=== PATIENT | female | born 1950 | race Caucasian/White ===

== ENCOUNTER 2025-06-17 00:37 | Emergency (ER) | payer MEDICARE, OTHER, SELFPAY ==
[2025-06-17] VITALS (7 sets, daily range): BP systolic 118–147; BP diastolic 56–90; BMI 26.5
[2025-06-17 01:06] LABS: Hematocrit 36.8 % (37.0-47.0); Hemoglobin 13.1 g/dL (12.0-16.0); Mean Corp Hgb Conc. 35.6 g/dL (33.0-37.0); Mean Corpuscular Volume 85.0 fL (81.0-99.0); Nucleated Red Blood Cells % 0 %; Platelet Count 288 10^3/uL (130-400); Red Cell Dist. Width 13.5 % (11.5-14.5)
[2025-06-17 01:31] LABS: ALT (SGPT) 28 U/L (0-35); AST (SGOT) 29 U/L (14-36); Albumin 4.4 g/dl (3.5-5.0); Alkaline Phosphatase 71 U/L (38-126); Blood Urea Nitrogen 28 mg/dl (7-17); Calcium 9.7 mg/dl (8.4-10.2); Carbon Dioxide 29 mmol/L (22-30); Chloride 96 mmol/L (98-107); Glucose 109 mg/dl (70-99); Potassium 3.8 mmol/L (3.5-5.1); Sodium 131 mmol/L (135-145); Total Protein 7.1 g/dl (6.3-8.2); eGFR > 60.00
[2025-06-17] MEDS: NSS 1000 IV (01:57)
[2025-06-17] MEDS: NEURONTIN 300 MG PO (04:05)
[2025-06-17] MEDS: TORADOL 15 MG IV (05:05)
--- NOTE | 2025-06-17 06:22 | ED.GENMED ---
History of Present Illness
General
Chief Complaint: Medication Reaction
Source: patient
Time Seen by Provider: 06/17/25 01:35
Nursing documentation reviewed up to this point in time: agreed with
History of Present Illness
History of Present Illness:
Note:
CHIEF COMPLAINT(S)
- Electrical sensation and involuntary spasms in the legs and arms.
HISTORY OF PRESENT ILLNESS
The patient is a 75-year-old female presenting with a sensation described as electrical impulses going down her legs and arms. This sensation occurs primarily when lying down and appears to be alleviated somewhat by walking around. She reports that
the sensation can be strong enough to feel like electric shocks, particularly when touched. These symptoms have disrupted her sleep, as she has difficulty sleeping due to the discomfort. Additionally, the patient describes involuntary spasms in her
legs, likening the feeling to a rubber band being wound tightly and then snapping. She mentions a history of dehydration, which is corroborated by laboratory findings. The patient expresses concern about these symptoms possibly being related to
dehydration and is currently receiving fluids and electrolytes for rehydration.
The patient has a past medical history of a fasciitis-like condition causing leg spasms. She was previously taking Celecoxib (Celebrex) for knee and bone pain but stopped due to ankle swelling, which she suspects was a side effect of the medication.
The patient notes that the swelling has decreased significantly since discontinuing the medication but remains slightly present.
SOCIAL DETERMINANTS AFFECTING HEALTH
The patient reports difficulty in maintaining adequate hydration, which may be contributing to her symptoms.
ALLERGIES
The patient reports having numerous contact allergies.
PHYSICAL EXAM
General: Alert, no acute distress.
Skin: Warm, dry.
Head: Normocephalic, atraumatic.
Neck: Supple, trachea midline.
Eyes, Ears, Nose, Mouth and Throat: Oral mucosa moist.
Cardiovascular: Normal peripheral perfusion, No edema.
Respiratory: Respirations are non-labored.
Gastrointestinal: Abdomen nondistended.
Back: Normal range of motion, Normal alignment.
Musculoskeletal: Normal range of motion, normal strength.
Neurological: Alert and oriented to person, place, time, and situation, No focal neurological deficit observed.
Psychiatric: Cooperative, appropriate mood & affect.
PLAN
1. Administer intravenous fluids and electrolytes to address dehydration.
2. Encourage oral hydration, particularly with electrolyte-rich fluids like sports drinks.
3. Monitor for improvement in symptoms following rehydration.
4. Assess the patients electrolyte levels to determine any deficiencies or imbalances.
DIFFERENTIAL DIAGNOSIS
The Differential Diagnosis includes, in no particular order and is not limited to:
1. Restless Leg Syndrome.
2. Peripheral neuropathy.
3. Electrolyte imbalance.
4. Medication side effects.
5. Dehydration.
6. Lumbar radiculopathy.
7. Spinal stenosis.
8. Orthostatic hypotension.
9. Sciatica.
10. Hypomagnesemia.
Disposition:
SUMMARY OF ENCOUNTER
The patient is a 75-year-old female who presented with electric shooting sensations down her legs, primarily occurring while trying to sleep. Upon evaluation, she was found to be dehydrated and received intravenous fluids along with various pain
medications in the emergency department. The administration of these treatments resulted in the complete elimination of her symptoms.
DISPOSITION
The patient was discharged in a much-improved condition.
PLAN
The patient will be started on Voltaren for ongoing management of her symptoms.
MEDICATION RECONCILIATION
Multiple types of pain medications administered in the emergency department.
Patient will be started on diclofenac (Voltaren).
MEDICAL DECISION MAKING
- Complexity of Data Reviewed: Chronic conditions affecting care include previous fasciitis-like condition causing leg spasms. The differential diagnosis list includes Restless Leg Syndrome, Peripheral neuropathy, Electrolyte imbalance, Medication
side effects, Dehydration, Lumbar radiculopathy, Spinal stenosis, Orthostatic hypotension, Sciatica, and Hypomagnesemia.
- Data:
Category 1
I reviewed the patients lab tests which supported findings of dehydration.
- Risk:
Prescription medication was prescribed, which is diclofenac (Voltaren), for symptom management.
DIAGNOSIS
Electric shooting sensations in legs and dehydration. Possible Restless Leg Syndrome or Peripheral Neuropathy.
Phy Exam
Physical Exam
Physical Exam:
.
Course
Orders/Labs/Results
Orders:
Orders
06/17/25 01:00
Complete Blood Count/With Diff Urgent
Comprehensive Metabolic Panel Urgent
06/17/25 01:36
0.9% Sodium Chloride 1000 ml [Nss] 1,000 ml IV BOLUS
06/17/25 03:56
Gabapentin [Neurontin] 300 mg PO NOW STA
06/17/25 05:03
Ketorolac [Toradol] 15 mg .ROUTE .STK-MED ONE
06/17/25 05:05
Ketorolac [Toradol] 15 mg IV NOW STA
Ketorolac [Toradol] 15 mg IV NOW STA
Abnormal Lab Results
06/17/25
01:00
Hct 36.8 L %
(37.0-47.0)
Absolute Monos (auto) 0.9 H 10^3/uL
(0.1-0.6)
Monocytes % 12.5 H %
(1.7-9.3)
Sodium 131 L mmol/L
(135-145)
Chloride 96 L mmol/L
(98-107)
BUN 28 H mg/dl
(7-17)
Glucose 109 H mg/dl
(70-99)
06/17/25 01:00
06/17/25 01:00
Vital Signs
Initial and Last Documented VS:
Initial Vital Signs
Temp Pulse Resp BP Pulse Ox
98.1 F 92 20 146/90 94
06/17/25 00:47 06/17/25 00:47 06/17/25 00:47 06/17/25 00:47 06/17/25 00:47
Last Documented Vital Signs
Temp Pulse Resp BP Pulse Ox
98.1 F 72 18 143/72 98
06/17/25 00:47 06/17/25 01:57 06/17/25 01:57 06/17/25 06:00 06/17/25 06:24
*Pulse Oximetry
SaO2: 98
Oxygen Mode of Delivery: Room air
Patient hypoxic: no
*Critical Care Note
Total Time (30-74mins, 75-104mins- exclusive of procedures): Not Applicable
ED Attending Note
-
Portions of this chart may have been created with voice recognition software.� Occasional wrong word or��sound alike� substitutions may have occurred due to the inherent limitations of voice recognition software.
Discharge Plan
Departure
Patient Disposition: Home (Routine Discharge)
Date of Disposition: 06/17/25
Time of Disposition: 06:23
Patient with high blood pressure during this ER visit?: Yes
Condition: Good
Discharge Problem:
Paresthesias, Musculoskeletal pain
Prescriptions:
New
diclofenac sodium 75 mg tablet,delayed release (DR/EC)
75 mg PO BID Qty: 10 0RF
Referrals:
Renate Tamez MD [Non-Admitting Privileges, Psychiatry]
UNKNOWN - PT DOES,NOT KNOW [Family Provider]
Activity Restrictions/Additional Instructions:
Thank You for choosing [facility].
It was a pleasure meeting you and taking part in your care. We hope for your continued healing and wellness.
Please read discharge instructions in their entirety. However, they are for general education and may not describe your exact diagnosis at discharge. Information on your ER visit and medical conditions were discussed with you along with appropriate
follow up information...
If indicated, please take your medications as instructed and indicated on discharge paperwork.
Please schedule a follow up appointment as directed. Call to schedule an appointment
Please return to the emergency department with ANY change in, persisting, or worsening of symptoms. If any of your symptoms do not improve, or persist, or become more severe within 6-12 hours, please return to the emergency department for further
care.
Please return to the emergency department if you develop a headache, neck pain/stiffness, fever greater than 100.4F, chest pain, shortness of breath, persistent nausea, vomiting, slurred speech, difficulty walking, numbness/tingling, weakness, signs
of infection or any other symptoms that are worrisome to you.
If you have any questions or concerns please do not hesitate to call the Hospital at or E-mail me directly at [email or web address]
Interventions
Interventions:
*Risk Screen - Suicide Last Done: 06/17/25 00:47
*General Assessment Last Done: 06/17/25 00:47
*Neglect/Abuse Screening Last Done: 06/17/25 00:47
*ED- Fall Risk Assessment Last Done: 06/17/25 00:47
*ED COVID-19 Vaccine History Last Done: 06/17/25 06:25
*Nursing Disposition Last Done: 06/17/25 06:25
ED-EENT Assessment Last Done: 06/17/25 01:49
ED- Pulmonary Assessment Last Done: 06/17/25 01:49
ED-Skin Assessment Last Done: 06/17/25 01:49
Discharge Date and Time
Discharge Date/Time: 06/17/25 06:38
Print Language: [place]
== END 2025-06-17 06:38 | disposition home or self-care (01) ==
LOC: EMR 00:37
PROVIDERS: EMERGENCY PHYSICIAN Student in an Organized Health Care Education/Training Program
DX: R20.2 Paresthesia of skin (principal); M79.18 Myalgia, other site; R25.2 Cramp and spasm; E86.0 Dehydration; G47.9 Sleep disorder, unspecified; I10 Essential (primary) hypertension; M19.90 Unspecified osteoarthritis, unspecified site; J45.909 Unspecified asthma, uncomplicated; Z85.828 Personal history of other malignant neoplasm of skin; Z88.8 Allergy status to other drugs, medicaments and biological substances
CPT/HCPCS: 99284; 96374; 96361; 80053; 85025

== ENCOUNTER 2025-06-20 16:41 | Emergency (ER) | payer MEDICARE, OTHER, SELFPAY ==
[2025-06-20 16:43] VITALS: BP 171/101
--- NOTE | 2025-06-20 17:00 | ED.GENMED ---
History of Present Illness
General
Chief Complaint: Circulation Problem
Time Seen by Provider: 06/20/25 17:00
History of Present Illness
History of Present Illness:
TIME OF INITIAL EVALUATION
- 5 PM
REVIEW OF OLD RECORDS
- The patient has a history of asthma, high blood pressure, and skin cancer. The patient was seen here 3 days ago diagnosed with musculoskeletal pain. At that time there was some concern for the possibility of restless leg syndrome or peripheral
neuropathy. She was given a prescription for Voltaren. At that time, CBC was unremarkable and chemistries were also unremarkable.
Note:
CHIEF COMPLAINT(S)
Buzzing sensation progressing from legs to the entire body, described by the patient as an electricity-like sensation.
HISTORY OF PRESENT ILLNESS
The patient is a 75-year-old female who presented with a progressive buzzing sensation that initially started in her legs and has now extended from her neck down to her body. The patient describes the sensation as marilu to electricity and states it
is becoming unbearably intense. She denies any associated pain and noted that she had a previous emergency room visit three days ago where blood tests were conducted, and results were reported normal. She has not previously consulted with a
neurologist and denies any visual changes such as double vision. The patient has received a prescription for diclofenac recently but reports no significant improvement. Following discussion, the potential for a neuropathic cause was raised, commonly
seen with conditions such as diabetic neuropathy, though the patients recent blood work does not indicate a simple metabolic or electrolyte imbalance. The patient experiences restlessness that now affects her entire body.
MEDICATIONS
The patient has been prescribed diclofenac previously. Discussion regarding the potential use of gabapentin for neuropathic pain management took place.
PLAN
1. Initiate a dose of gabapentin to assess its effectiveness in managing the buzzing sensation.
2. Schedule a CAT scan to rule out any structural abnormalities within the brain.
3. No additional blood work required at this time, as recent tests were normal.
4. Follow-up appointment with a neurologist is scheduled for a more detailed outpatient evaluation.
DIFFERENTIAL DIAGNOSIS
The Differential Diagnosis includes, in no particular order and is not limited to:
1. Peripheral neuropathy
2. Multiple sclerosis
3. Diabetic neuropathy
4. Spinal cord compression
5. Restless leg syndrome
6. Anxiety-related somatic symptom
7. Cervical spondylotic myelopathy
8. Vitamin B12 deficiency neuropathy
9. Idiopathic mononeuropathy
10. Stroke or transient ischemic attack (TIA)
PHYSICAL EXAM
General: Alert, no acute distress.
Skin: Warm, dry.
Head: Normocephalic, atraumatic.
Neck: Supple, trachea midline.
Eye, Ears, Nose, Mouth, and Throat: Oral mucosa moist.
Cardiovascular: Normal peripheral perfusion, no edema.
Respiratory: Respirations are non-labored.
Gastrointestinal: Abdomen nondistended.
Back: Normal range of motion, normal alignment.
Musculoskeletal: Normal range of motion, normal strength.
Neurological: Alert and oriented to person, place, time, and situation, no focal neurological deficit observed.
Psychiatric: Cooperative, appropriate mood & affect.
RADIOLOGY
- CAT scan of the brain unremarkable
EKG
-
LABS
- Vitamin B12 normal
UPDATE
-SUMMARY OF ENCOUNTER
The patient, a 75-year-old female, was seen in the emergency department due to a progressive buzzing sensation experienced throughout her body, which she describes as electricity-like. A CAT scan was conducted to rule out structural abnormalities,
revealing no signs indicative of a tumor or other causative condition. Vitamin B12 levels were also evaluated due to their potential link to neuropathic sensations and were found to be within normal range. Gabapentin was discussed as a treatment for
neuropathic pain, and a prescription was provided for 300 mg tablets, up to three times a day, to see its effect on her symptoms. The patient was advised to follow up with her neurologist, Dr. Tamez, for further evaluation and management.
Diclofenac was used previously but deemed ineffective and not pertinent to her current condition.
PLAN
Initiate gabapentin 300 mg, up to 900 mg per day, based on tolerance, to help manage neuropathic symptoms. Follow up with neurologist Dr. Tamez for a detailed evaluation and treatment plan.
INDEPENDENT REVIEW OF LABS AND INTERPRETATION OF TESTS
My independent review of Vitamin B12 levels indicates normal results, not contributing to the symptoms.
PROCEDURES
A CAT scan was performed, and my independent interpretation is that there is no evidence of structural abnormalities such as a tumor.
PATIENT EDUCATION AND COUNSELING
The patient was informed about the role of gabapentin in treating neuropathic symptoms and the importance of neurology follow-up with Dr. Tamez. The ineffectiveness of diclofenac in this context was also discussed.
FOLLOW-UP INSTRUCTIONS
See Dr. Tamez, the neurologist, as recommended, to further evaluate and devise a comprehensive treatment plan.
MEDICATION RECONCILIATION
Gabapentin 300 mg tablet, prescribed up to three times daily as tolerated, with a prescription provided for 1-2 weeks to assess its efficacy. The patient is advised to discontinue diclofenac if it is not providing relief.
MEDICAL DECISION MAKING
-Complexity of Data Reviewed: Chronic conditions affecting care include neuropathic symptoms potentially due to peripheral neuropathy or other neurological conditions. Differential diagnosis includes peripheral neuropathy, multiple sclerosis,
diabetic neuropathy, spinal cord compression, restless leg syndrome, anxiety-related somatic symptom, cervical spondylotic myelopathy, vitamin B12 deficiency neuropathy, idiopathic mononeuropathy, stroke or transient ischemic attack (TIA).
-Data:
Category 1: My independent interpretation of the CAT scan shows no structural abnormalities.
Category 2: Review of the Vitamin B12 lab test, confirming that levels are normal and not contributing to the symptoms.
-Risk: Prescription medication was prescribed in the form of gabapentin, requiring monitoring for potential side effects. Consideration of Admission/Observation: Escalation of care including admission/observation was considered given the complexity
and risk of the patients presenting complaint, exam findings, and/or their underlying comorbidities. However, ultimately I feel the patient is safe for outpatient management with close follow-up. Reasoning: Work-up reassuring, does not reveal any
acute life/organ-threatening processes, patients symptoms well controlled upon reevaluation, reexamination is reassuring, vitals are stable, patient agreeable with discharge, reliable for follow-up.
DIAGNOSIS
Paresthesias
May be some improvement with gabapentin 300 mg in the ER. Will give prescription.
Phy Exam
Physical Exam
Physical Exam:
See HPI
Course
Orders/Labs/Results
Orders:
Orders
06/20/25 17:23
CT Head W/o Iv Contrast Urgent
Comment:
Reason For Exam: diffuse paresthesias
Gabapentin [Neurontin] 300 mg PO NOW STA
06/20/25 17:40
B12 [Vitamin B12] Urgent
Vital Signs
Initial and Last Documented VS:
Initial Vital Signs
Temp Pulse Resp BP Pulse Ox
36.9 C 84 18 171/101 96
06/20/25 16:43 06/20/25 16:43 06/20/25 16:43 06/20/25 16:43 06/20/25 16:43
Last Documented Vital Signs
Temp Pulse Resp BP Pulse Ox
36.9 C 84 18 175/83 96
06/20/25 16:43 06/20/25 16:43 06/20/25 16:43 06/20/25 19:04 06/20/25 17:01
*Pulse Oximetry
SaO2: 96
Oxygen Mode of Delivery: Room air
Patient hypoxic: no
*Critical Care Note
Total Time (30-74mins, 75-104mins- exclusive of procedures): Not Applicable
ED Attending Note
-
Portions of this chart may have been created with voice recognition software.� Occasional wrong word or��sound alike� substitutions may have occurred due to the inherent limitations of voice recognition software.
Discharge Plan
Departure
Patient Disposition: Home (Routine Discharge)
Date of Disposition: 06/20/25
Time of Disposition: 19:20
Patient with high blood pressure during this ER visit?: Yes
Discharge Problem:
Paresthesias
Prescriptions:
No Action
diclofenac sodium 75 mg tablet,delayed release (/EC)
75 mg PO BID Qty: 10 0RF
Referrals:
Renate Tamez MD [Non-Admitting Privileges, Neurology]
UNKNOWN - PT DOES,NOT KNOW [Unknown Provider]
Activity Restrictions/Additional Instructions:
I think would be reasonable to stop the diclofenac (Voltaren). I am giving a prescription for gabapentin which may or may not help with your symptoms. Vitamin B12 level was normal. CAT scan of the brain is normal. I reviewed your recent blood
work which also was unremarkable. Follow-up with Dr. Tamez.
Interventions
Interventions:
*Risk Screen - Suicide Last Done: 06/20/25 16:45
*General Assessment Last Done: 06/20/25 17:12
*Neglect/Abuse Screening Last Done: 06/20/25 16:45
*ED- Fall Risk Assessment Last Done: 06/20/25 17:12
*ED COVID-19 Vaccine History Last Done: 06/20/25 17:12
ED-Peripheral Vascular Assessment Last Done: 06/20/25 19:09
Discharge Date and Time
Print Language: [place]
[2025-06-20 17:12] VITALS: BMI 26.0
[2025-06-20] MEDS: NEURONTIN 300 MG PO (17:38)
[2025-06-20 19:04] VITALS: BP 175/83
[2025-06-20 19:13] LABS: Vitamin B12 472 pg/ml (239-931)
== END 2025-06-20 19:37 | disposition home or self-care (01) ==
LOC: EMR 16:41
PROVIDERS: EMERGENCY PHYSICIAN Emergency Medicine; FAMILY PHYSICIAN Family Medicine
DX: R20.2 Paresthesia of skin (principal); G62.9 Polyneuropathy, unspecified; J45.909 Unspecified asthma, uncomplicated; Z85.828 Personal history of other malignant neoplasm of skin
CPT/HCPCS: 99284; 70450; 82607

== ENCOUNTER → 2025-07-16 11:18 | Outpatient (REF) | payer MEDICARE, OTHER, SELFPAY | LOC: RAD 11:18 | PROVIDERS: ATTENDING PHYSICIAN Internal Medicine Critical Care Medicine; FAMILY PHYSICIAN Nurse Practitioner | DX: R06.09 Other forms of dyspnea (principal); J45.909 Unspecified asthma, uncomplicated | CPT/HCPCS: 71046 ==

== ENCOUNTER 2025-09-10 06:30 | Day surgery (SDC) | payer MEDICARE, OTHER, SELFPAY | END 2025-09-10 10:05 | disposition home or self-care (01) | LOC: GI 06:30 | PROVIDERS: ATTENDING PHYSICIAN Internal Medicine Gastroenterology | DX: R12 Heartburn (principal); R09.89 Other specified symptoms and signs involving the circulatory and respiratory systems; R09.A2 Foreign body sensation, throat; K22.89 Other specified disease of esophagus; K29.70 Gastritis, unspecified, without bleeding; K29.50 Unspecified chronic gastritis without bleeding; K20.90 Esophagitis, unspecified without bleeding | CPT/HCPCS: 43239; 88305; 88342 ==

== ENCOUNTER → 2025-10-20 11:36 | Outpatient (REF) | payer MEDICARE, OTHER, SELFPAY | LOC: PAVMRI 11:36 | PROVIDERS: ATTENDING PHYSICIAN Nurse Practitioner | DX: R20.2 Paresthesia of skin (principal) | CPT/HCPCS: 70553; A9575 ==

== ENCOUNTER → 2025-11-09 11:27 | Outpatient (REF) | payer MEDICARE, OTHER, SELFPAY | LOC: RAD 11:27 | PROVIDERS: ATTENDING PHYSICIAN Internal Medicine; FAMILY PHYSICIAN Nurse Practitioner | DX: M15.0 Primary generalized (osteo)arthritis (principal); M17.11 Unilateral primary osteoarthritis, right knee | CPT/HCPCS: 73502; 73560; 73565 ==